=== PATIENT | female | born 1995 | race African-American/Black ===

== ENCOUNTER 2021-10-03 00:44 | Emergency (ER) | payer BC, SELFPAY ==
--- NOTE | ~2021-10-03 | CT_ITS ---
EXAMINATION: CT brain wo con DATE: 10/03/2021 01:58 INDICATION: Head injury. TECHNIQUE: Computed tomography (CT) of the head was performed without intravenous contrast. The mA wa s adjusted according to patient size. Iterative reconstruction technique was employed. The dose-lengt h product was 605.33 mGy-cm. COMPARISON: None FINDINGS: There is no intracranial hemorrhage, acute infarction, or abnormal intracranial mass lesion . The ventricles are normal in size. The orbits are normal. The paranasal sinuses are clear. The mast oid air cells are normal. IMPRESSION: 1. Normal brain. Reviewed, dictated and finalized at location A. IMPRESSION: 1. Normal brain.
[2021-10-03 00:50] VITALS: BP 150/86; PULSE 94; RESP 16; TEMP 36; O2SAT 99
[2021-10-03 01:03] VITALS: PULSE 109; RESP 18; O2SAT 100
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
[2021-10-03] MEDS: AMOXICILLIN/CLAVULANATE K 875-125 MG TAB 1 TABLET PO (01:35)
[2021-10-03] MEDS: TETANUS,DIPHTHERIA,AC PERTUSSIS ADULT (0.5 ML) BOOSTRIX IM (01:36)
[2021-10-03 03:25] VITALS: BP 144/70; PULSE 74; RESP 18; O2SAT 99
== END 2021-10-03 03:25 | disposition home or self-care (01) ==
PROVIDERS: Emergency Provider Nurse Practitioner Family
DX: S50.872A Other superficial bite of left forearm, initial encounter (principal); S09.90XA Unspecified injury of head, initial encounter; Z23 Encounter for immunization; Y04.1XXA Assault by human bite, initial encounter; Y04.2XXA Assault by strike against or bumped into by another person, initial encounter
CPT/HCPCS: 70450; 90471; 90715; 99284; A9270

== ENCOUNTER 2021-10-06 07:44 | Outpatient (CLI) | payer BC, SELFPAY ==
--- NOTE | ~2021-10-06 | MR_ITS ---
EXAMINATION: MR shoulder LT wo con DATE: 10/06/2021 08:36 INDICATION: Left shoulder pain radiating down the left arm and decreased range of motion post surgery for multiple dislocations. TECHNIQUE: Magnetic resonance imaging (MRI) of the left shoulder was performed without intravenous co ntrast. Sequences included axial PD-weighted FS FSE, coronal oblique PD-weighted FS FSE, coronal obli que T2-weighted FS FSE, sagittal PD-weighted FS FSE, and sagittal T1-weighted SE. COMPARISON: None. FINDINGS: Coracoacromial arch: The acromion undersurface is flat in morphology (type I). The coracoacromial ligament is normal. Acro mioclavicular joint is normal. Rotator cuff: The supraspinatus, infraspinatus and teres minor tendons are normal. The subscapularis tendon is norm al. Normal rotator cuff muscle bulk and signal. Biceps tendon, glenoid labrum and glenohumeral cartilage: Long head of the biceps tendon is normal. There are 3 likely suture anchor tracks along the anterior to anteroinferior glenoid likely repair of a chronic Bankart lesion given the location and history of recurrent dislocations. There is osteophyte formation replacing some of the labral tissue at the 4:0 0-5:00 position the anteroinferior glenoid. No fluid signal intensity tear defect appreciated. Glenoh umeral cartilage is normal. Fluid: Physiologic amount of fluid in the glenohumeral joint and biceps tendon sheath. No loose osteochondr al bodies. Very small amount of fluid in the subacromial/subdeltoid bursa consistent with minimal bur sitis. Bones/other: Chronic Hill-Sachs fracture trough along the posterosuperior lateral aspect of the humeral head . Nor mal marrow signal with no edema, acute fracture or pathologic marrow replacing process. Mild left axi llary lymphadenopathy, the largest lymph node measuring 1.3 cm in maximal short axis dimension with p reserved small fatty hilum. IMPRESSION: 1. 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 2. Minimal subacromial/subdeltoid bursitis. 3. Nonspecific mild left axillary lymphadenopathy. 4. Chronic Hill-Sachs fracture trough consistent with history of prior anterior dislocations. Reviewed, dictated and finalized at location B. IMPRESSION: 1. Intact appearing repair of a likely chronic Bankart lesion along the anterio r to anteroinferior glenoid labrum with some osteophyte formation along the und erlying rim of the glenoid. 2. Minimal subacromial/subdeltoid bursitis. 3. Nonspecific mild left axillary lymphadenopathy. 4. Chronic Hill-Sachs fracture trough consistent with history of prior anterior dislocations.
== END 2021-10-06 07:45 | disposition home or self-care (01) ==
LOC: ANHIMG 07:52
PROVIDERS: Visit Provider Orthopaedic Surgery
DX: G89.29 Other chronic pain (principal); M25.512 Pain in left shoulder; Z98.890 Other specified postprocedural states
CPT/HCPCS: 73221

== ENCOUNTER 2021-12-02 01:50 | Day surgery (SDC) | payer BC, SELFPAY ==
[2021-11-28 14:48] VITALS: BMI 48.9
--- NOTE | 2021-11-28 14:49 | PC.NURSE ---
Report to the Outpatient Waiting Room, entrance under the green pavilion located off [facility], at time _0600_ on date _[id number]_. OR Time: _07_. - You and your visitor will be asked a series of questions to screen for COVID 19 for your protection. - Only one visitor is allowed at this time. - The patient visitor is requested to leave or wait in car when not with patient. - A mask is required within the hospital. Patients may have clear liquids (water, carbonated beverages, clear teas, apple juice) until 3 hours prior to surgery with a maximum of 20 ounces. - No food from midnight until time of surgery Take the following medications with a SIP of water the morning of surgery: __None Medications to discontinue per physician None Date to take last dose Please no make-up, nail georgian, hairspray, perfume, deodorant, or body powder the day of surgery. No jewelry (including any body piercings) or valuables the day of surgery, leave them at home. Please take a shower or bath the night before, or the morning of, surgery with an antibacterial soap. Wear comfortable, loose fitting clothing. Children are encouraged to wear pajamas. - Jewelry must be removed prior to entering the operating room. Rings and piercings that are not removed may be cut off. - The hospital will not accept responsibility for valuables. - Please leave all valuables, including medications, at home the day of surgery. If you are going home after surgery, a licensed form setter/driver must drive you home. - NO public transportation without another adult. - We recommend that an adult stay with you for 24 hours following discharge. - We also recommend that you do not drive, make important decision, drink alcoholic beverages, or take any drugs that were not prescribed by your health care provider for at least 24 hours after your discharge time. Follow any additional instructions given to you from your surgeon. If you or anyone in your household have experienced Covid symptoms in the past week, please notify your surgeon or the nurse liaison at the phone number below for possible testing. Telephone instructions given to __Patient and asked if any additional questions and then verbalized understanding. Patient advised to call surgeon office or pre surgery nurse liaison [phone] if any additional questions.
--- NOTE | 2021-12-01 18:02 | P.PNAN_ITS ---
Anes - Initial Pre Proc Eval Procedure: Operation Date: 12/02/21 07:30 Proposed Procedures p Partial Plantar Fasciectomy Left Foot - Tray Prajapati JR, MD Date/Time: 12/01/21 18:02 Surgeon: Tray Prajapati JR, MD Pre Op Diagnosis: Plantar Fascitits Left Fot Patient Data Age: 25 Gender: F Height: 1.73 m Weight: 145.9 kg Allergies Allergy/AdvReac Type Severity Reaction Status Date / Time No Known Allergies Allergy Verified 11/28/21 14:42 Home Medications Medication Instructions Recorded Confirmed Type No Home Medications 11/28/21 11/28/21 History Patient hx anesthesia problems: none Family hx anesthesia problems: none Results Review: All pre-operative results and documents have been reviewed as part of the pre- operative evaluation. [facility] Past Medical History Medical History (Updated 12/01/21 @ 18:03 by Timbo Gar MD) Morbid obesity with BMI of 45.0-49.9, adult No significant past medical history Surgical History Surgical History History of shoulder surgery (~06/02/20) Left shoulder - Bankhart Repair w/Capsulorrhaphy Social History Social History Smoking status: Never smoker Alcohol intake: never Substance use: never Substance use type: does not use Living arrangements: with family Spiritual care concerns: No Anes - Eval Final PreProcedure Day of Procedure 12/01/21 18:02 Patient weight: morbidly obese Heart: regular rate and rhythm Lungs: clear to auscultation and normal air movement Airway: Mallampati scale class II Neurological: alert and oriented Last oral intake: >/= 8 hours ASA classification: III Emergent: no Anesthetic plan: proceed Anesthesia type and monitoring: general ETT Results Review: All pre-operative results and documents have been reviewed as part of the pre- operative evaluation. Informed Consent: The patient's anesthetic plan and its attendant risks and benefits were discussed with the patient/family/POA. Questions were solicited and answers provided to the satisfaction of the patient/family/POA.
--- NOTE | 2021-12-01 18:03 | WPDANESPNB ---
Anes - Peripheral Nerve Block Date/Time: 12/01/21 18:03 I have discussed with the patient/family/POA the placement of a peripheral nerve block for post-operative pain management, including associated risks, benefits, complications, and side effects. Alternative methods of post-operative analgesia were detailed. Questions were solicited and answers provided to the satisfaction of the patient/family/POA. Time-Out: A pre-procedural Time-Out was completed immediately before starting the procedure and confirmed: Patient Identification, Site, Procedure, Patient Position and the Availability of Requisite Equipment. Clinical Indications: Acute post-operative pain management requested by the operative surgeon. Nerve Block Insertion Note Anes-nerve block: posterior fossa sciatic (20cc) Patient position: supine Skin prep: chlorhexidine Needle: 22 gauge, stimulating, insulated echogenic needle. Needle length: 80 mm Technique: ultrasound (in plane) Injectate: bupivacaine 0.5% with epi 5 mcg/ml (20cc) Observations: tolerated well Complications: none Procedure start time:: 720 Procedure end time:: 725
[2021-12-02] VITALS (8 sets, daily range): BP systolic 105–137; BP diastolic 67–92; PULSE 71–84; RESP 16–20; TEMP 36.5–36.7; O2SAT 96–100
[2021-12-02] MEDS: LACTATED RINGERS 1,000 ML 30 ML IV CONT (06:55)
--- NOTE | 2021-12-02 07:16 | WPDHPUPDATE1 ---
History and Physical Update Update Date/Time: 12/02/21 07:16 History and Physical has been reviewed, including an updated exam of the patient. There are NO changes in the patient's condition. Risks, benefits, and alternatives have been discussed and questions answered. Patient agrees to proceed with procedure.
[2021-12-02] MEDS: ceFAZolin 3 GM/D5W 100 ML 100 ML IVPB (07:41)
--- NOTE | 2021-12-02 08:32 | W.PM.PROC2 ---
Procedure Note - Detailed Date of Procedure 12/02/21 Pre-op Diagnosis Plantar Fascitits Left Fot Post-op Diagnosis Same Procedure Performed Partial plantar fasciectomy left foot Surgeon Tray Prajapati, , DPM Indications Chronic inferior heel pain Findings Thick plantar fascia greater than 8mm at its thickest component Description of Procedure Under mild sedation, the patient was brought in to the operating room, placed on the operating table in the supine position. A pneumatic ankle tourniquet was placed about the patient's ankle. Following general anesthesia, and regional anesthesia via a popliteal fossa block. The foot was then scrubbed, prepped, and draped in the usual abseptic manner. An Esmarch bandage was then used to exsanguinate the patient's foot and the pneumatic ankle tourniquet was then inflated. Next, an incision was made starting distal to the medial tubercle of the calcaneus extending distally 3cm. All bleeders were cauterized as necessary. Next the dissection was continued down to the plantar fascia it was exposed medially and laterally with [employer] retractors. Two thirds of the medial plantar fascia was transected and a 4mm portion was also cut and discarded. The wound site was flushed with sterile saline. The deep subcutaneous tissue was reapproximated with 3.0 Vicryl and the skin was reapproximated with 2.0 Prolene and 3.0 Prolene in Vertical mattress and Simple interrupted suture technique. Upon completion of the procedure, the plantar incision was dressed with adaptic, 4x4 gauze, kerlix and coban. The pneumatic ankle tourniquet was then deflated and a prompt hyperemic response was noted to all digits of the affected foot. A CAM Walker boot was then applied. The patient did very well with the procedure and the anesthesia. The patient was transferred to the recovery room with vital signs stable and vascular status intact to all toes of the affected foot. Following a period of postoperative monitoring, the patient will be discharged home on the following written and oral postoperative instructions: 1. The patient should keep the dressing clean, dry, and intact. Use a cast protector bag with showers. 2. The patient will be strictly protected weight bearing with CAM walker boot. 3. Patient should ice and elevate the affected foot when at rest. 4. The patient is to contact Dr. Prajapati for all postop care and if any problems arise. 5. Prescriptions were written for Percocet 5/325 dispensed 40 to be taken 1 p.o. q.4-6 hours as needed for severe pain. Estimated Blood Loss 1 Drains No Packing No Pathology None sent Complications No immediate complications Condition Stable Disposition Same day
[2021-12-02] MEDS: ONDANSETRON INJ 4 MG/2 ML VIAL IV PUSH (09:19)
[2021-12-02] MEDS: diphenhydrAMINE HCl INJ 50 MG/ML VIAL 25 MG IV PUSH (09:58)
[2021-12-02] MEDS: SCOPOLAMINE 1.5 MG PATCH TRANSDERM (10:00)
== END 2021-12-02 10:28 | disposition home or self-care (01) ==
PROVIDERS: Visit Provider Podiatrist Foot & Ankle Surgery
PROC: (CPT 28119; principal; 2021-12-02 07:30)
DX: M72.2 Plantar fascial fibromatosis (principal); G89.18 Other acute postprocedural pain; E66.01 Morbid (severe) obesity due to excess calories; Z68.42 Body mass index [BMI] 45.0-49.9, adult
CPT/HCPCS: 28060; 64445; A9270; J0690; J1100; J1200; J2250; J2405; J2704; J3010; J7120

== ENCOUNTER 2022-01-19 10:06 | Outpatient (CLI) | payer BC, SELFPAY ==
[2022-01-19 10:38] LABS: Basophils Percent Auto 0.3 % (0.2-1.2); Eosinophils Absolute Auto 0.1 K/mm3 (0-0.3); Eosinophils Percent Auto 1.1 % (0-4.4); Hematocrit 40.9 % (37.0-47.0); Immature Granulocyte Absolute 0.01 K/mm3 (0.00-0.031); Immature Granulocyte Percent A 0.1 % (0-0.5); Lymphocytes Absolute Auto 3.96 K/mm3 (0.9-3.2); Mean Corpuscular HGB Conc 31.8 g/dl (32-36); Mean Corpuscular Hemoglobin 26.6 pg (26-34); Mean Corpuscular Volume 83.6 fl (80-100); Mean Platelet Volume 9.8 fl (7.4-10.4); Monocytes Absolute Auto 0.6 K/mm3 (0.1-0.6); Monocytes Percent Auto 5.2 % (2.6-8.5); Neutrophils Absolute Auto 6.3 K/mm3 (1.3-6.7); Neutrophils Percent Auto 57.3 % (45.5-73.1); Platelet Count Result 292 k/mm3 (150-375); Red Blood Count 4.89 M/mm3 (4.2-5.4); Red Cell Distribution Width 14.2 % (11.5-14.5)
[2022-01-19 10:48] LABS: Alanine Aminotransferase 15 U/L (6-35); Albumin Level 4.4 g/dL (3.5-5.1); Alkaline Phosphatase 100 U/L (38-126); Anion Gap 10 mmol/L (8-16); Aspartate Amino Transferase 25 U/L (14-36); Bilirubin,Total 0.2 mg/dL (0.2-1.3); Blood Urea Nitrogen 14 mg/dL (7-17); Calcium 9.5 mg/dL (8.4-10.2); Carbon Dioxide 26 mmol/L (22-30); Chloride 101 mmol/L (98-107); Cholesterol 187 mg/dL (0-200); Estimated Glomerular Filt Rate > 60; Glucose 111 mg/dL (65-110); HDL Direct 40 mg/dL; Potassium 3.8 mmol/L (3.4-5.0); Sodium 137 mmol/L (137-145); Triglycerides 142 mg/dL (<150)
[2022-01-19 10:59] LABS: LDL Cholesterol Direct 97 mg/dL
[2022-01-19 11:05] LABS: Hemoglobin A1C 5.5 % (<5.7)
== END 2022-01-19 10:07 | disposition home or self-care (01) ==
LOC: ANHLAB 10:09
PROVIDERS: PCP Family Medicine; Visit Provider Family Medicine
DX: E66.01 Morbid (severe) obesity due to excess calories (principal); Z68.42 Body mass index [BMI] 45.0-49.9, adult; Z13.1 Encounter for screening for diabetes mellitus; R20.0 Anesthesia of skin; Z13.220 Encounter for screening for lipoid disorders
CPT/HCPCS: 36415; 80053; 80061; 83036; 84443; 85025

== ENCOUNTER 2022-02-23 00:52 | Emergency (ER) | payer BC, SELFPAY ==
[2022-02-23 00:58] VITALS: BP 153/87; PULSE 89; RESP 18; TEMP 36.3; O2SAT 100
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
[2022-02-23] MEDS: ACETAMINOPHEN 500 MG TABLET 1000 MG PO (03:34)
[2022-02-23 03:57] VITALS: PULSE 89; RESP 18; O2SAT 98
== END 2022-02-23 03:59 | disposition home or self-care (01) ==
PROVIDERS: Emergency Provider Emergency Medicine; PCP Family Medicine
DX: S09.93XA Unspecified injury of face, initial encounter (principal); E66.01 Morbid (severe) obesity due to excess calories; Z68.42 Body mass index [BMI] 45.0-49.9, adult; Y04.2XXA Assault by strike against or bumped into by another person, initial encounter
CPT/HCPCS: 99282; A9270

== ENCOUNTER 2022-03-15 07:43 | Outpatient (CLI) | payer BC, SELFPAY ==
--- NOTE | 2022-03-15 11:00 | NEURO_ITS ---
IMPRESSION: # Complains of left hand numbness intermittently. # No Carpal Tunnel Syndrome. # No ulnar neuropathy. # Normal F waves. # Normal needle exam. # Clinical correlation recommended. Nerve Conduction Studies Anti Sensory Summary Table Stim Site NR Peak (ms) P-T Amp (?V) Site1 Site2 Delta-P (ms) Dist (cm) Gino (m/s) Left Median Anti Sensory (2-3nd Digit) Wrist 2.3 196.3 Wrist 2-3nd Digit 2.3 14.0 61 Wrist 2.3 168.3 Wrist 2-3nd Digit 2.3 14.0 61 Left Radial Anti Sensory (Base 1st Digit) Wrist 1.8 47.9 Wrist Base 1st Digit 1.8 0.0 Left Ulnar Anti Sensory (5th Digit) Wrist 2.1 192.3 Wrist 5th Digit 2.1 14.0 67 Motor Summary Table Stim Site NR Onset (ms) O-P Amp (mV) Site1 Site2 Delta-0 (ms) Dist (cm) Gino (m/s) Left Median Motor (Abd Poll Brev) Wrist 2.2 9.3 Elbow Wrist 4.4 28.0 64 Elbow 6.6 3.8 Left Ulnar Motor (Abd Dig Minimi) Wrist 2.0 6.3 A Elbow Wrist 4.8 29.0 60 A Elbow 6.8 5.7 F Wave Studies NR F-Lat (ms) L-R F-Lat (ms) Left Median (Mrkrs) (Abd Poll Brev) 24.37 Left Ulnar (Mrkrs) (Abd Dig Min) 24.75 EMG Side Muscle Nerve Root Ins Act Fibs Amp Dur Recrt Comment Left 1stDorInt Ulnar C8-T1 Nml Nml Nml Nml Nml Left Ext Indicis Radial (Post Int) C7-8 Nml Nml Nml Nml Nml Left Ext Digitorum Radial (Post Int) C7-8 Nml Nml Nml Nml Nml Left BrachioRad Radial C5-6 Nml Nml Nml Nml Nml Left PronatorTeres Median C6-7 Nml Nml Nml Nml Nml Left Abd Poll Brev Median C8-T1 Nml Nml Nml Nml Nml MTDD
== END 2022-03-15 07:44 | disposition home or self-care (01) ==
LOC: ANHNEURO 07:45
PROVIDERS: PCP Family Medicine; Visit Provider Family Medicine
DX: R20.0 Anesthesia of skin (principal)
CPT/HCPCS: 95886; 95909

== ENCOUNTER 2022-04-02 20:14 | Emergency (ER) | payer BC, SELFPAY ==
[2022-04-02 20:49] VITALS: BP 140/84; PULSE 108; RESP 18; TEMP 36.2; O2SAT 100
--- NOTE | 2022-04-02 23:34 | PC.NURSE ---
pt reports not lifting or any external injury. Pt states they could barely tolerate sitting at work. Pt reports it's easier to stand or sit leaning forward helps.
--- NOTE | 2022-04-03 00:12 | ED.BACK ---
HPI - Back Pain/Injury General Chief Complaint: Back Pain/Injury <GERARDO Rowe Last Filed: 04/03/22 00:25> Stated Complaint: low back paiN <GERARDO Rowe Filed: 04/03/22 00:25> Time Seen by Provider: 04/02/22 23:37 <GERARDO Rowe Filed: 04/03/22 00:25> Source: patient <GERARDO Rowe Filed: 04/03/22 00:25> Mode of arrival: ambulatory <GERARDO Rowe Filed: 04/03/22 00:25> Limitations: no limitations <GERARDO Rowe Filed: 04/03/22 00:25> History of Present Illness HPI Narrative: Patient is a 26 y/o female who presents to the ED with c/o low back pain. Patient reports having pain for the last 4 days. She denies any known injury, strenuous activity, heavy lifting. States pain is worse after sitting down for long periods of time. She took Tylenol yesterday with some relief. She has also been using a heating pad and lidocaine patch. Patient denies any radiation down legs, weakness of legs, numbness, saddle anesthesia, incontinence of bowel or bladder, abdominal pain, nausea, vomiting, fever. <GERARDO Rowe Last Filed: 04/03/22 00:25> Related Data Allergies/Adverse Reactions: Allergies Allergy/AdvReac Type Severity Reaction Status Date / Time No Known Allergies Allergy Verified 03/24/22 07:05 <GERARDO Rowe Last Filed: 04/03/22 00:25> Review of Systems Review of Systems: CONSTITUTIONAL: Denies fever, chills, or sweats. CARDIOVASCULAR: Denies chest pain. RESPIRATORY: Denies dyspnea. GASTROINTESTINAL: Denies abdominal pain, nausea, vomiting. MUSCULOSKELETAL: Reports low back pain. Denies BLE pain. NEUROLOGIC: Denies headache, numbness, tingling, saddle anesthesia, or weakness. <GERARDO Rowe Filed: 04/03/22 00:25> All systems reviewed & are unremarkable except as noted in HPI and below <Melissa Nicole PA-C - Last Filed: 04/03/22 00:25> [facility] Past Medical History Medical History: Medical History Morbid obesity with BMI of 45.0-49.9, adult No significant past medical history Plantar fasciitis of left foot <Melissa Nicole PA-C - Last Filed: 04/03/22 00:25> Surgical History Surgical History: Surgical History History of shoulder surgery (~06/02/20) Left shoulder - [employer] w/Capsulorrhaphy S/P foot surgery, left <Melissa Nicole PA-C - Last Filed: 04/03/22 00:25> Family History Family History: Family History Other Breast cancer in female Other Diabetes mellitus <Melissa Nicole PA-C - Last Filed: 04/03/22 00:25> Social History Social History: Social History Social History: Single Smoking status: Never smoker Second hand tobacco smoke exposure: No Alcohol intake: never Substance use: never Substance use type: does not use Gender identity (if verbalized by the patient): Female Spiritual care concerns: No <Melissa Nicole PA-C - Last Filed: 04/03/22 00:25> Exam Narrative: GENERAL: Well appearing, morbidly obese, non-toxic, in no acute distress. HEAD: Normocephalic, atraumatic. NECK: Supple. No adenopathy, no masses. RESPIRATORY: Airway patent, respirations nonlabored. Clear to auscultation bilaterally, no rales, rhonchi, wheezing. CARDIOVASCULAR: Regular rate and rhythm without murmurs, rubs, or gallops. Peripheral pulses 2+ and equal bilaterally. MUSCULOSKELETAL: Moves all extremities. Strength/ROM intact without gross deformities. No midline spinal tenderness to lumbar or thoracic region. No step-offs or palpable bony deformities. Mild left-sided paraspinal muscle tenderness in lumbar region. SKIN: Warm, d
[2022-04-03] MEDS: KETOROLAC (*BKC) 60 MG/2 ML VIAL IM (00:32)
[2022-04-03 00:37] VITALS: BP 149/89; PULSE 78; RESP 18; O2SAT 99
== END 2022-04-03 00:31 | disposition home or self-care (01) ==
PROVIDERS: Emergency Provider Emergency Medicine; PCP Family Medicine
DX: S39.012A Strain of muscle, fascia and tendon of lower back, initial encounter (principal); E66.01 Morbid (severe) obesity due to excess calories; Z68.42 Body mass index [BMI] 45.0-49.9, adult; X58.XXXA Exposure to other specified factors, initial encounter
CPT/HCPCS: 96372; 99283; J1885

== ENCOUNTER 2022-04-21 09:08 | Outpatient (CLI) | payer BC, SELFPAY ==
[2022-04-21 09:34] LABS: Basophils Percent Auto 0.2 % (0.2-1.2); Eosinophils Absolute Auto 0.2 K/mm3 (0-0.3); Eosinophils Percent Auto 2.2 % (0-4.4); Hematocrit 43.2 % (37.0-47.0); Hemoglobin 13.6 g/dL (12.0-15.0); Immature Granulocyte Absolute 0.02 K/mm3 (0.00-0.031); Immature Granulocyte Percent A 0.2 % (0-0.5); Lymphocytes Absolute Auto 3.09 K/mm3 (0.9-3.2); Lymphocytes Percent Auto 36.5 % (18.3-44.2); Mean Corpuscular HGB Conc 31.5 g/dl (32-36); Mean Corpuscular Hemoglobin 26.7 pg (26-34); Mean Corpuscular Volume 84.7 fl (80-100); Monocytes Absolute Auto 0.4 K/mm3 (0.1-0.6); Monocytes Percent Auto 5.1 % (2.6-8.5); Neutrophils Absolute Auto 4.7 K/mm3 (1.3-6.7); Neutrophils Percent Auto 55.8 % (45.5-73.1); Platelet Count Result 282 k/mm3 (150-375); Red Cell Distribution Width 13.4 % (11.5-14.5); White Blood Count 8.5 K/mm3 (4.5-10.0)
[2022-04-21 10:11] LABS: Free T4 Free Thyroxine 1.82 ng/mL (0.78-2.19)
[2022-04-21 10:25] LABS: Thyroid Stimulating Hormone < 0.015 uIU/mL (0.465-4.680); Total Triiodothyronine (T3) 1.63 NG/ML (0.97-1.69)
== END 2022-04-21 09:09 | disposition home or self-care (01) ==
LOC: ANHLAB 09:10
PROVIDERS: PCP Family Medicine; Visit Provider Family Medicine
DX: E03.9 Hypothyroidism, unspecified (principal); D72.829 Elevated white blood cell count, unspecified
CPT/HCPCS: 36415; 84439; 84443; 84480; 85025